=== PATIENT | female | born 1990 | race Caucasian/White ===

== ENCOUNTER 2020-07-30 12:06 | Emergency (ER) | payer BC, SELFPAY ==
[2020-07-30] MEDS ORDERED: KETOROLAC 30 MG/ML INJ ONE (13:07)
--- NOTE | 2020-07-30 13:33 | RAD REPORT ---
EXAM DESCRIPTION: CT - Spine Lumbar Wo Con - 07/30/2020 1:13 pm CLINICAL HISTORY: Radiculopathy. PAIN COMPARISON: No comparisons TECHNIQUE: Axial noncontrast CT imaging of the lumbar spine was performed with coronal and sagittal re-formatted images. All CT scans are performed using dose optimization technique as appropriate and may include automated exposure control or mA/KV adjustment according to patient size. FINDINGS: No acute lumbar spine fracture seen. No aggressive marrow pattern or malalignment. Paraspinal tissues are normal in thickness. No paraspinal abscess or hematoma seen. Intervertebral disc disease assessment is inherently limited by CT. Within these limitations, no high -grade canal stenosis suspected. IMPRESSION: No acute lumbar spine abnormality discerned. Consider MRI follow-up for assessment of disc disease if clinically desired.
--- NOTE | 2020-07-30 13:58 | EDPHYS ---
Physician Documentation [facility] Name: Nayeli Decker Age: 30 yrs Sex: Female : 1990 Arrival Date: 07/30/2020 Time: 12:11 Bed 26 Private MD: ED Physician Stefan Knott HPI: 07/30 13:56 This 30 yrs old Female presents to ER via Wheelchair with complaints of Back kb Pain. 13:56 The patient presents with pain that is acute. The symptoms are located in the low back. kb Onset: The symptoms/episode began/occurred today. The pain does not radiate. Associated signs and symptoms: The patient has no apparent associated signs or symptoms. The problem was sustained when lifting patient. Modifying factors: The patient symptoms are alleviated by nothing, the patient symptoms are aggravated by any movement. Severity of symptoms: At their worst the symptoms were moderate, in the emergency department the symptoms are unchanged. The patient has not experienced similar symptoms in the past. The patient has not recently seen a physician. 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 - Social history:: Smoking status: Patient reports the use of cigarette tobacco products, smokes one-half pack cigarettes per day. ROS: 13:53 Constitutional: Negative for fever, chills, and weight loss. kb 13:53 Back: Positive for pain at rest, pain with movement, of the lumbar area. 13:53 All other systems are negative. Exam: 13:55 Constitutional: This is a well developed, well nourished patient who is awake, alert, kb and in no acute distress. ENT: Moist Mucous membranes Cardiovascular: Regular rate and rhythm with a normal S1 and S2. No gallops, murmurs, or rubs. No pulse deficits. Respiratory: Respirations even and unlabored. No increased work of breathing, no retractions or nasal flaring. Abdomen/GI: Soft, non-tender. No distention Skin: Warm, dry with normal turgor. Normal color. MS/ Extremity: Pulses equal, no cyanosis. Neurovascular intact. Full, normal range of motion. Neuro: Awake and alert, GCS 15, oriented to person, place, time, and situation. Moves all extremities. Normal gait. Psych: Awake, alert, with orientation to person, place and time. Behavior, mood, and affect are within normal limits. 13:55 Back: pain, that is moderate, of the lumbar area, ROM is normal, normal spinal alignment noted. Vital Signs: 12:38 BP 116 / 82; Pulse 89; Resp 18; Temp 98.3(O); Pulse Ox 98% on R/A; Weight 74.84 kg (R); aj1 Height 5 ft. 4 in. (162.56 cm) (R); Pain 8/10; 13:27 BP 107 / 74; Pulse 63; Resp 18; Pulse Ox 100% on R/A; aj1 12:38 Body Mass Index 28.32 (74.84 kg, 162.56 cm) aj1 MDM: 12:40 Patient medically screened. kb 13:55 Data reviewed: vital signs, nurses notes. Data interpreted: Pulse oximetry: on room air kb is 100 %. Interpretation: normal. Counseling: I had a detailed discussion with the patient and/or guardian regarding: the historical points, exam findings, and any diagnostic results supporting the discharge/admit diagnosis, radiology results, the need for outpatient follow up, a family practitioner, to return to the emergency department if symptoms worsen or persist or if there are any questions or concerns that arise at home. 07/30 12:43 Order name: CT Lumbar Spine Wo Con; Complete Time: 13:35 kb Administered Medications: 12:55 Drug: TORadol (ketorolac) 30 mg Route: IM; Site: right deltoid; aj1 14:22 Follow up: Response: No adverse reaction aj1 14:05 Drug: [place] (HYDROcodone-acetaminophen) (7.5 mg-325 mg) 1 tabs Route: PO; aj1 14:22 Follow up: Response: No adverse reaction aj1 Disposition: 07/30/20 13:57 Discharged to Home. Impression: Low back pain. - Condition is Stable. - Discharge Instructions: Back Injury Prevention, Cxin-vi-[id number], Back Pain, Adult, Luai-ak-Stwo, Back Exercises, Ptcn-[id number]. - Prescriptions for Cyclobenzaprine 10 mg Oral Tablet - take 1 tablet by ORAL route every 8 hours As needed; 21 tablet. Diclofenac Sodium 75 mg Oral Tablet, Delayed Release (E.C.) - take 1 tablet by ORAL route 2 times per day As needed; 30 tablet. - Work release form, Medication Reconciliation Form, Thank You Letter, Antibiotic Education, Prescription Opioid Use form. - Follow up: Emergency Department; When: As needed; Reason: Worsening of condition. Follow up: Private Physician; When: 2 - 3 days; Reason: Recheck today's complaints, Continuance of care, Re-evaluation by your physician. Addendum: 08/02/2020 11:03 Co-signature as Attending Physician, Stefan Knott MD I agree with the assessment and k dr plan of care. Signatures: Dispatcher [employer] EDClaudine Goode, AURICULAR DETOXIFICATION SPECIALIST-C AURICULAR DETOXIFICATION SPECIALIST-Ckb Muriel Watt RN RN aj1 Stefan Knott MD MD kdr Corrections: (The following items were deleted from the chart) 07/30 14:23 13:57 07/30/2020 13:57 Discharged to Home. Impression: Low back pain. Condition is aj1 Stable. Forms are Medication Reconciliation Form, Thank You Letter, Antibiotic Education, Prescription Opioid Use. Follow up: Emergency Department; When: As needed; Reason: Worsening of condition. Follow up: Private Physician; When: 2 - 3 days; Reason: Recheck today's complaints, Continuance of care, Re-evaluation by your physician. kb
--- NOTE | 2020-07-30 13:58 | ER ---
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 Coronavirus screen: Client denies travel out of the [place] in the last 14 days. At this time, the client does not indicate any symptoms associated with coronavirus-19. Ebola Screen: Patient denies travel to an Ebola-affected area in the 21 days before illness onset. Initial Sepsis Screen: Does the patient meet any 2 criteria? No. Patient's initial sepsis screen is negative. Does the patient have a suspected source of infection? No. Patient's initial sepsis screen is negative. Risk Assessment: Do you want to hurt yourself or someone else? Patient reports no desire to harm self or others. Onset of symptoms was July 30, 2020. 12:38 Method Of Arrival: Wheelchair aj1 12:38 Acuity: TANGELA 4 aj1 Triage Assessment: 12:40 General: Appears in no apparent distress. uncomfortable, Behavior is calm, cooperative, aj1 appropriate for age. Pain: Denies pain. Complains of pain in low back area Pain does not radiate. Pain currently is 8 out of 10 on a pain scale. Musculoskeletal: Range of motion: intact in all extremities. 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 - Social history:: Smoking status: Patient reports the use of cigarette tobacco products, smokes one-half pack cigarettes per day. Screenin:40 Abuse screen: Denies threats or abuse. Denies injuries from another. Nutritional aj1 screening: No deficits noted. Tuberculosis screening: No symptoms or risk factors identified. 14:23 Fall Risk None identified. aj1 Assessment: 12:40 General: Appears in no apparent distress. uncomfortable, Behavior is calm, cooperative, aj1 appropriate for age. Pain: Complains of pain in low back area Pain does not radiate. Pain currently is 8 out of 10 on a pain scale. Quality of pain is described as aching. Neuro: Level of Consciousness is awake, alert, obeys commands, Oriented to person, place, time, situation. Cardiovascular: Patient's skin is warm and dry. Respiratory: Airway is patent Respiratory effort is even, unlabored, Respiratory pattern is regular, symmetrical. GI: No signs and/or symptoms were reported involving the gastrointestinal system. : No signs and/or symptoms were reported regarding the genitourinary system. EENT: No signs and/or symptoms were reported regarding the EENT system. Derm: No signs and/or symptoms reported regarding the dermatologic system. Skin is. Musculoskeletal: Circulation, motion, and sensation intact. Range of motion: intact in all extremities. 13:27 Reassessment: Patient appears in no apparent distress at this time. No changes from aj1 previously documented assessment. Patient and/or family updated on plan of care and expected duration. Pain level reassessed. Patient is alert, oriented x 3, equal unlabored respirations, skin warm/dry/pink. 14:23 Reassessment: Patient appears in no apparent distress at this time. Patient and/or aj1 family updated on plan of care and expected duration. Pain level reassessed. Patient is alert, oriented x 3, equal unlabored respirations, skin warm/dry/pink. Patient states feeling better. Vital Signs: 12:38 BP 116 / 82; Pulse 89; Resp 18; Temp 98.3(O); Pulse Ox 98% on R/A; Weight 74.84 kg (R); aj1 Height 5 ft. 4 in. (162.56 cm) (R); Pain 8/10; 13:27 BP 107 / 74; Pulse 63; Resp 18; Pulse Ox 100% on R/A; aj1 12:38 Body Mass Index 28.32 (74.84 kg, 162.56 cm) aj1 ED Course: 12:11 Patient arrived in ED. as 12:38 Muriel Watt RN is Primary Nurse. aj1 12:39 Triage completed. aj1 12:40 Claudine Lepe [facility]-C [facility]. kb 12:40 Stefan Knott MD is Attending Physician. kb 12:40 Arm band placed on Patient placed in an exam room. aj1 12:40 Patient has correct armband on for positive identification. Call light in reach. Side aj1 rails up X 1. 12:40 No provider procedures requiring assistance completed. aj1 13:13 CT Lumbar Spine Wo Con In Process Unspecified. EDMS 14:23 IV discontinued, intact, bleeding controlled, No redness/swelling at site. Pressure aj1 dressing applied. Administered Medications: 12:55 Drug: TORadol (ketorolac) 30 mg Route: IM; Site: right deltoid; aj1 14:22 Follow up: Response: No adverse reaction aj1 14:05 Drug: [place] (HYDROcodone-acetaminophen) (7.5 mg-325 mg) 1 tabs Route: PO; aj1 14:22 Follow up: Response: No adverse reaction aj1 Outcome: 13:57 Discharge ordered by . kb 14:23 Discharged to home ambulatory, with family. aj1 14:23 Condition: good 14:23 Discharge instructions given to patient, Instructed on discharge instructions, follow up and referral plans. medication usage, Demonstrated understanding of instructions, follow-up care, medications, Prescriptions given X 2. 14:23 Patient left the ED. aj1 Signatures: Dispatcher [employer] EDClaudine Goode FNP-C FNP-Muriel Smith RN RN aj1 Kemi Aguero as
[2020-07-30] MEDS ORDERED: HYDROCODONE/APAP 7.5/325 MG TAB ONE (14:28)
[2020-07-30 14:29] VITALS: TEMP 98.3
[2020-07-30 14:30] VITALS: BP 107/74; O2SAT 100
== END 2020-07-30 14:23 | disposition home or self-care (01) ==
LOC: ER 12:06
DX: M54.5 Low back pain (principal); F17.210 Nicotine dependence, cigarettes, uncomplicated; M17.0 Bilateral primary osteoarthritis of knee
CPT/HCPCS: 72131; 96372; 99283

== ENCOUNTER 2020-10-28 15:10 | Emergency (ER) | payer BC ==
[2020-10-28 16:58] LABS: SARS-COV-2 RT PCR NEGATIVE (NEGATIVE)
--- NOTE | 2020-10-28 17:02 | EDPHYS ---
Physician Documentation [facility] Name: Nayeli Decker Age: 30 yrs Sex: Female : 1990 Arrival Date: 10/28/2020 Time: 15:12 Bed Waiting Private MD: ED Physician Stefan Knott HPI: 10/28 18:19 This 30 yrs old Female presents to ER via Wheelchair with complaints of Pain kb All Over, Sore Throat, Headache. 18:19 The patient or guardian reports. kb 18:20 The patient presents with sore throat. The patient describes throat pain as constant. kb Onset: The symptoms/episode began/occurred this morning. Severity of symptoms: At their worst the symptoms were moderate, in the emergency department the symptoms are unchanged. Modifying factors: The symptoms are alleviated by nothing, the symptoms are aggravated by swallowing. Associated signs and symptoms: Pertinent positives: headache, bodyaches. The patient has not experienced similar symptoms in the past. The patient has not recently seen a physician. Pt reports she woke up with bodyaches, sore throat and headache. 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 - Social history:: Smoking status: . ROS: 18:18 Respiratory: Negative for shortness of breath, cough, wheezing, and pleuritic chest kb pain. 18:18 Constitutional: Positive for body aches, fatigue, malaise. 18:18 ENT: Positive for sore throat. 18:18 Neuro: Positive for headache. 18:18 All other systems are negative. Exam: 18:18 Constitutional: This is a well developed, well nourished patient who is awake, alert, kb and in no acute distress. Head/Face: Normocephalic, atraumatic. ENT: Moist Mucous membranes Cardiovascular: Regular rate and rhythm with a normal S1 and S2. No gallops, murmurs, or rubs. No pulse deficits. Respiratory: Respirations even and unlabored. No increased work of breathing, no retractions or nasal flaring. Skin: Warm, dry with normal turgor. Normal color. MS/ Extremity: Pulses equal, no cyanosis. Neurovascular intact. Full, normal range of motion. Neuro: Awake and alert, GCS 15, oriented to person, place, time, and situation. Moves all extremities. Normal gait. Psych: Awake, alert, with orientation to person, place and time. Behavior, mood, and affect are within normal limits. Vital Signs: 15:33 Temp 99.1(TE); tw2 15:42 BP 124 / 76; Pulse 112; Resp 19; Temp 99.1(TE); Pulse Ox 99% on R/A; tw2 MDM: 15:35 Patient medically screened. kb 15:36 Data reviewed: vital signs, nurses notes. Data interpreted: Pulse oximetry: on room air kb is 100 %. Interpretation: normal. 18:18 Counseling: I had a detailed discussion with the patient and/or guardian regarding: the kb historical points, exam findings, and any diagnostic results supporting the discharge/admit diagnosis, lab results, the need for outpatient follow up, a family practitioner, to return to the emergency department if symptoms worsen or persist or if there are any questions or concerns that arise at home. 10/28 15:37 Order name: COVID-19 : Document "Date of Symptom Onset" if Symptomatic. kb 10/28 15:37 Order name: Flu kb 10/28 15:37 Order name: Strep; Complete Time: 16:29 kb 10/28 16:26 Order name: Throat Culture EDMS 10/28 16:58 Order name: COVID-19/FLU A+B; Complete Time: 17:00 EDMS Administered Medications: No medications were administered Disposition: 10/29 04:43 Co-signature as Attending Physician, Stefan Knott MD I agree with the assessment and kdr plan of care. Disposition Summary: 10/28/20 17:01 Discharge Ordered Location: Home kb Condition: Stable kb Diagnosis - Acute pharyngitis, unspecified kb Followup: kb - With: Emergency Department - When: As needed - Reason: Worsening of condition Followup: kb - With: Private Physician - When: 2 - 3 days - Reason: Recheck today's complaints, Continuance of care, Re-evaluation by your physician Discharge Instructions: - Pharyngitis, [id number] kb - Discharge Summary Sheet tw2 Forms: - Medication Reconciliation Form kb - Thank You Letter kb - Antibiotic Education kb - Prescription Opioid Use kb - Work release form tw2 Signatures: Dispatcher [employer] EDClaudine Goode, REMOTE CONTROL MIRROR INSTALLER-C STEFAN-Stefan Bowers MD MD kdr Wise, Tara, RN RN tw2 Corrections: (The following items were deleted from the chart) 10/28 16:10 15:37 CORONAVIRUS ordered. ED[facility] EDMS 16:41 15:37 Influenza Screen (A ordered. ED[facility] EDMS
--- NOTE | 2020-10-28 17:02 | ER ---
Nurse's Notes [facility] Name: Nayeli Decker Age: 30 yrs Sex: Female : 1990 Arrival Date: 10/28/2020 Time: 15:12 Bed Waiting Private MD: Diagnosis: Acute pharyngitis, unspecified Presentation: 10/28 15:33 Chief complaint: Patient states: i woke up this morning with a swollen throat. it hurts tw2 to swallow. got worse throughout the day. between 6 and noon. my whole body started aching. terrible headache. 15:33 Note provider STEFAN Odell in triage room. tw2 15:38 Coronavirus screen: Client presents with at least one sign or symptom that may indicate tw2 coronavirus-19. Standard/surgical mask placed on the client. Provider contacted for isolation considerations. Ebola Screen: Patient denies travel to an Ebola-affected area in the 21 days before illness onset. Initial Sepsis Screen: Does the patient meet any 2 criteria? No. Patient's initial sepsis screen is negative. Does the patient have a suspected source of infection? No. Patient's initial sepsis screen is negative. Risk Assessment: Do you want to hurt yourself or someone else? Patient reports no desire to harm self or others. Onset of symptoms was October 28, 2020. 15:38 Method Of Arrival: Wheelchair tw2 15:38 Acuity: TANGELA 4 tw2 Triage Assessment: 15:37 General: Appears in no apparent distress. uncomfortable, Behavior is cooperative, tw2 appropriate for age. Pain: Complains of pain in uvula, left aspect of posterior pharynx and right aspect of posterior pharynx. 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 - Social history:: Smoking status: . Screenin:38 Abuse screen: Denies threats or abuse. Nutritional screening: No deficits noted. tw2 Tuberculosis screening: No symptoms or risk factors identified. Fall Risk None identified. Assessment: 15:44 Respiratory: Airway is patent Respiratory effort is even, unlabored, EENT: Throat is tw2 reddened. 17:17 Reassessment: Patient appears in no apparent distress at this time. No changes from tw2 previously documented assessment. Patient and/or family updated on plan of care and expected duration. Pain level reassessed. Patient is alert, oriented x 3, equal unlabored respirations, skin warm/dry/pink. Vital Signs: 15:33 Temp 99.1(TE); tw2 15:42 BP 124 / 76; Pulse 112; Resp 19; Temp 99.1(TE); Pulse Ox 99% on R/A; tw2 ED Course: 15:12 Patient arrived in ED. as 15:32 Arm band placed on. tw2 15:35 Claudine Lepe FNP-C [facility]. kb 15:35 Stefan Knott MD is Attending Physician. kb 15:38 Triage completed. tw2 15:43 Adult w/ patient. tw2 17:17 No provider procedures requiring assistance completed. Patient did not have IV access tw2 during this emergency room visit. Administered Medications: No medications were administered Outcome: 17:01 Discharge ordered by . kb 17:17 Discharged to home ambulatory, with family. tw2 17:17 Condition: stable 17:17 Discharge instructions given to patient, family, Instructed on discharge instructions, follow up and referral plans. 17:17 Patient left the ED. tw2 Signatures: Claudine Lepe FNP-C FNP-Kemi Busch Tara, RN RN tw2
[2020-10-28 17:38] VITALS: TEMP 99.1
[2020-10-28 17:40] VITALS: BP 124/76; O2SAT 99
== END 2020-10-28 17:17 | disposition home or self-care (01) ==
LOC: ER 15:10
DX: J02.9 Acute pharyngitis, unspecified (principal); F31.9 Bipolar disorder, unspecified; Z20.822 Contact with and (suspected) exposure to COVID-19
CPT/HCPCS: 87070; 87081; 0240U; 99281

== ENCOUNTER 2021-03-08 22:31 | Emergency (ER) | payer BC, SELFPAY ==
[2021-03-08] MEDS ORDERED: NA CHLORIDE 0.9% 1,000 ML ONE (23:08)
[2021-03-08 23:40] LABS: Hematocrit 38.2 % (36.0-45.0); Lymphocytes % 14.9 % (15.3-44.8); MPV 8.8 fL (7.6-11.3); RBC Red Blood Cell Count 4.36 M/uL (3.86-4.86)
[2021-03-08 23:45] LABS: Urine Blood 1+ (Negative); Urine Glucose Negative (Negative); Urine Protein 2+ (Negative); Urine Specific Gravity 1.025 (1.005-1.030); Urine pH 6.5 (5.0-7.0)
[2021-03-08 23:53] LABS: ALT/SGPT 21 U/L (12-78); AST/SGOT 11 U/L (15-37); Albumin 3.3 g/dL (3.4-5.0); Alkaline Phosphatase 86 U/L (45-117); BUN Blood Urea Nitrogen 6 mg/dL (7-18); Bicarbonate 25 mmol/L (21-32); Bilirubin Direct < 0.1 mg/dL (0-0.2); Bilirubin Total 0.3 mg/dL (0.2-1.0); Creatine Phosphokinase 64 U/L (26-192); Glucose Level 119 mg/dL (74-106); Lipase 58 U/L (73-393); Magnesium 2.2 mg/dL (1.8-2.4); Potassium 3.3 mmol/L (3.5-5.1); Protein, Total 7.3 g/dL (6.4-8.2); Sodium Level 140 mmol/L (136-145)
[2021-03-09 00:01] LABS: CKMB Creatine Kinase MB < 1.0 ng/mL (1.0-3.6)
[2021-03-09] MEDS ORDERED: LIDOCAINE 1% W/EPI 1:100,000 MDV 20 ML VIAL ONE (00:45)
[2021-03-09] MEDS ORDERED: TETANUS & DIPHTHERIA TOX,ADULT 0.5 ML VIAL ONE (00:45)
[2021-03-09 00:58] LABS: Urine Specific Gravity/Preg 1.025 (1.005-1.030)
[2021-03-09] MEDS ORDERED: NA CHLORIDE 0.9% 50 ML ONE (01:25)
[2021-03-09] MEDS ORDERED: CEFTRIAXONE 1000 MG/VIAL ONE (01:25)
[2021-03-09 02:05] LABS: Urine Bacteria 20-50 /HPF (<20); Urine RBC <5 /HPF (NONE SEEN); Urine Urothelial Cells <5 /HPF (NONE SEEN)
[2021-03-09 03:11] LABS: Barbiturates NEGATIVE (NEGATIVE); Benzodiazepines NEGATIVE (NEGATIVE); Cocaine NEGATIVE (NEGATIVE); METHAMPHETAM POSITIVE (NEGATIVE); Methadone NEGATIVE (NEGATIVE); Opiates NEGATIVE (NEGATIVE); Phencyclidine NEGATIVE (NEGATIVE); THC Cannibis POSITIVE (NEGATIVE)
--- NOTE | 2021-03-09 04:10 | ER ---
Nurse's Notes [facility] Name: Nayeli Decker Age: 30 yrs Sex: Female : 1990 Arrival Date: 03/08/2021 Time: 22:43 Bed 4 Private MD: Diagnosis: UTI/ Urinary tract infection, site not specified;Syncope Presentation: 03/08 22:44 Chief complaint: EMS states: pt was talking on phone and started feeling dizzy, had a mk syncopal episode lasting unknown amount of time, hit head on corner of coffee table, lac to L forehead. complaining of head and L knee pain. hx of hypoglycemia, BG for ems was 127. pt a\T\ox3 now. Coronavirus screen: Vaccine status: Patient reports receiving the 2nd dose of the covid vaccine. Ebola Screen: No symptoms or risks identified at this time. Initial Sepsis Screen: Does the patient meet any 2 criteria? HR > 90 bpm. No. Patient's initial sepsis screen is negative. Does the patient have a suspected source of infection? No. Patient's initial sepsis screen is negative. Risk Assessment: Do you want to hurt yourself or someone else? Patient reports no desire to harm self or others. Onset of symptoms was March 08, 2021. 22:44 Method Of Arrival: EMS: [facility] 22:44 Acuity: TANGELA 3 Triage Assessment: 03/09 01:19 General: Appears in no apparent distress. Behavior is drowsy. Pain: Complains of pain sf1 in forehead. Neuro: Level of Consciousness is obeys commands, lethargic. Injury Description: Laceration sustained to forehead is clean, a small amount of bleeding noted at this time. DROSSER: 00:42 LMP 03/02/2021 [facility] Historical: - Allergies: 03/08 22:46 No Known Allergies; - Home Meds: 22:46 Lamictal 100 mg Oral tab 1 tab 2 times per day [Active]; prazosin 1 mg Oral cap 1 cap 3 mk times per day [Active]; trazodone 100 mg oral tab [Active]; Abilify 10 mg oral tab [Active]; - PMHx: 22:46 Anxiety; Bipolar disorder; osteoarthritis; osteoathritis in knees; PTSD; mk - PSHx: 22:46 Operative procedure on knee; - Immunization history:: Client reports receiving the 2nd dose of the Covid vaccine. - Social history:: Smoking status: unknown. Screenin:47 Abuse screen: Denies threats or abuse. Denies injuries from another. Nutritional screening: No deficits noted. Tuberculosis screening: No symptoms or risk factors identified. Fall Risk Fall in past 12 months (25 points). No secondary diagnosis (0 pts). IV access (20 points). Ambulatory Aid- None/Bed Rest/Nurse Assist (0 pts). Gait- Normal/Bed Rest/Wheelchair (0 pts) Mental Status- Oriented to own ability (0 pts). Total Warren Fall Scale indicates High Risk Score (45 or more points). Fall prevention measures have been instituted. Side Rails Up X 2 Frequent Obs/Assessments Occuring As available patient and family educated on Fall Prevention Program and Strategies. Assessment: 23:45 Reassessment: No changes from previously documented assessment. see triage assessment. [facility] 03/09 01:00 Reassessment: No changes from previously documented assessment. [facility] 02:00 Reassessment: No changes from previously documented assessment. [facility] 04:15 Reassessment: pt ambulated to bathroom and back without assistance. [facility] Vital Signs: 03/08 22:44 BP 105 / 82; Pulse 128; Resp 22; Pulse Ox 100% on R/A; Weight 62.14 kg; Height 5 ft. 4 mk in. (162.56 cm); 03/09 00:41 BP 112 / 73; Pulse 107; Resp 16; Pulse Ox 99% on R/A; 5 01:19 BP 108 / 66; Pulse 97; Resp 16; sf1 04:13 BP 113 / 88; Pulse 84; Resp 16; Pulse Ox 100% ; [facility] 03/08 22:44 Body Mass Index 23.52 (62.14 kg, 162.56 cm) ED Course: 03/08 22:43 Patient arrived in ED. mk 22:44 Claudine Lepe FNP-C is PHCP. kb 22:44 Prem Cordova MD is Attending Physician. kb 22:46 Triage completed. mk 22:47 Arm band placed on right wrist. mk 22:47 Patient has correct armband on for positive identification. Bed in low position. Call light in reach. Side rails up X2. monitor technician on. Pulse ox on. NIBP on. 22:57 CT Head Brain wo Cont In Process Unspecified. EDMS 23:00 Katina Mendoza, RN is Primary Nurse. mk 23:15 CBC with Diff Sent. mk 23:15 Basic Metabolic Panel Sent. mk 23:15 CBC with Automated Diff Sent. mk 23:15 Basic Metabolic Panel Sent. mk 23:15 Ptt, Activated Sent. mk 23:15 Protime (+inr) Sent. mk 23:15 Magnesium Sent. mk 23:15 Lipase Sent. mk 23:15 Hepatic Function Sent. mk 23:15 Ckmb Sent. mk 23:15 CPK Sent. 03/09 01:03 Alcohol Serum/Plasma Sent. 1 01:03 ETOH Level Sent. sf1 04:21 Assist provider with laceration repair on forehead that was between 2.6 to 7.5 cm using sm5 sutures. Set up tray. Performed by Claudine EDWARDS Dressed with band aid, Patient tolerated well. IV discontinued, intact, bleeding controlled, No redness/swelling at site. Pressure dressing applied. 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 Exp: [facility] 07/02/2021. Lot #: [id number]. } Route: IM; Site: left deltoid; 01:30 Drug: Rocephin (cefTRIAXone) 1 grams Route: IV; Rate: calculated rate; Site: right sm5 antecubital; Outcome: 04:10 Discharge ordered by . rn 04:22 Discharged to home ambulatory. [facility] 04:22 Condition: stable 04:22 Discharge instructions given to patient, Instructed on discharge instructions, follow up and referral plans. medication usage, Demonstrated understanding of instructions, follow-up care, medications, Prescriptions given X 1. 04:30 Patient left the ED. 5 Signatures: Dispatcher [employer] EDKS Claudine Lepe FNP-C FNP-Prem Nwesome MD MD rn Mazur, Sarah, RN RN 5 Katina Mendoza, RN RN Rupal Joy RN RN sf1 Corrections: (The following items were deleted from the chart) 04:21 03/08 23:45 Reassessment: No changes from previously documented assessment. [email or web address]
--- NOTE | 2021-03-09 04:11 | EDPHYS ---
Physician Documentation [facility] Name: Nayeli Decker Age: 30 yrs Sex: Female : 1990 Arrival Date: 03/08/2021 Time: 22:43 Bed 4 Private MD: ED Physician Prem Cordova HPI: 03/09 00:38 This 30 yrs old Female presents to ER via EMS with complaints of syncope. kb 00:38 The patient has experienced syncope, collapsed. Onset: The symptoms/episode kb began/occurred just prior to arrival. Duration: This was a single episode. Context: the episode(s) was witnessed, by family, mother, occurred at home, occurred while the patient was standing, Just prior to the episode the patient experienced lightheadedness. Associated injury: Head/face: right side of forehead, laceration, 3 cm(s). Associated signs and symptoms: Pertinent positives: headache. Current symptoms: headache, that is moderate. The patient has not experienced similar symptoms in the past. The patient has not recently seen a physician. 00:39 Pt had a syncopal episode at home. States she got lightheaded then passed out. Mother marylu was there and called 911. Pt reports she drank 3 beers tonight. 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 - Social history:: Smoking status: unknown. ROS: 03/09 00:36 Constitutional: Negative for fever, chills, and weight loss. kb Skin: Positive for laceration(s), of the right side of forehead. Neuro: Positive for syncope, Negative for altered mental status, dizziness, gait disturbance, headache, hearing loss, loss of consciousness, numbness, seizure activity, speech changes, near syncope, tinnitus, tremor, visual changes, weakness. All other systems are negative. Exam: 00:36 Constitutional: This is a well developed, well nourished patient who is awake, alert, kb and in no acute distress. Eyes: Pupils equal round and reactive to light, extra-ocular motions intact. Lids and lashes normal. Conjunctiva and sclera are non-icteric and not injected. Cornea within normal limits. Periorbital areas with no swelling, redness, or edema. ENT: Moist Mucous membranes Cardiovascular: Regular rate and rhythm with a normal S1 and S2. No gallops, murmurs, or rubs. No pulse deficits. Respiratory: Respirations even and unlabored. No increased work of breathing. Talking in full sentences Abdomen/GI: Soft, non-tender. No distention MS/ Extremity: Pulses equal, no cyanosis. Neurovascular intact. Full, normal range of motion. Neuro: Awake and alert, GCS 15, oriented to person, place, time, and situation. Moves all extremities. Normal gait. Psych: Awake, alert, with orientation to person, place and time. Behavior, mood, and affect are within normal limits. 00:36 Skin: injury, laceration(s), the wound is approximately 3 cm(s), of the right side of forehead, that can be described as clean, no foreign body, linear, without bleeding. 00:44 ECG was reviewed by the Attending Physician. kb Vital Signs: 03/08 22:44 BP 105 / 82; Pulse 128; Resp 22; Pulse Ox 100% on R/A; Weight 62.14 kg; Height 5 ft. 4 mk in. (162.56 cm); 03/09 00:41 BP 112 / 73; Pulse 107; Resp 16; Pulse Ox 99% on R/A; sm5 01:19 BP 108 / 66; Pulse 97; Resp 16; sf1 04:13 BP 113 / 88; Pulse 84; Resp 16; Pulse Ox 100% ; sm5 03/08 22:44 Body Mass Index 23.52 (62.14 kg, 162.56 cm) mk Laceration: 01:06 Wound Repair of 3cm ( 1.2in ) subcutaneous laceration to right side of forehead. Linear kb shaped.. Distal neuro/vascular/tendon intact. Anesthesia: Wound infiltrated with 3 mls of 1% lidocaine w/ Epi. Wound prep: Extensive cleansing with hibiclenz by nurse, Wound irrigation with saline by nurse. Skin closed with 5 5-0 fast absorbing gut using simple sutures and sterile technique. Patient tolerated well. MDM: 03/08 22:44 Patient medically screened. kb 03/09 00:36 Data reviewed: vital signs, nurses notes. Data interpreted: Pulse oximetry: on room air kb is 100 %. Interpretation: normal. 02:02 ED course: Pt ambulated with assist, but still very drowsy. Will continue to monitor. kb 02:44 Transition of care: After a detail discussion of the patient's case, care is kb transferred to Prem Cordova MD. 03/08 22:45 Order name: Basic Metabolic Panel kb 03/08 22:45 Order name: CBC with Diff kb 03/08 22:45 Order name: CPK; Complete Time: 00:09 kb 03/08 22:45 Order name: Ckmb; Complete Time: 00:09 kb 03/08 22:45 Order name: Hepatic Function; Complete Time: 00:09 kb 03/08 22:45 Order name: Lipase; Complete Time: 00:09 kb 03/08 22:45 Order name: Magnesium; Complete Time: 00:09 kb 03/08 22:45 Order name: Basic Metabolic Panel; Complete Time: 00:09 EDMS 03/08 22:45 Order name: CBC with Automated Diff; Complete Time: 23:52 EDMS 03/08 23:45 Order name: Urine Dipstick-Ancillary; Complete Time: 23:52 EDMS 03/09 00:35 Order name: Urine --Ancillary (enter results); Complete Time: 01:05 lp1 03/09 00:36 Order name: Urine Microscopic Only; Complete Time: 02:06 kb 03/08 22:45 Order name: CT Head Brain wo Cont kb 03/08 22:45 Order name: EKG; Complete Time: 22:46 kb 03/08 22:45 Order name: Cardiac monitoring; Complete Time: 22:48 kb 03/08 22:45 Order name: EKG - Nurse/Tech; Complete Time: 23:15 kb 03/08 22:45 Order name: IV Saline Lock; Complete Time: 22:47 kb 03/08 22:45 Order name: Labs collected and sent; Complete Time: 23:15 kb 03/08 22:45 Order name: NPO; Complete Time: 22:47 kb 03/09 00:46 Order name: Glucose, Ancillary Testing; Complete Time: 00:47 EDMS 03/09 00:48 Order name: ETOH Level 03/09 00:49 Order name: Alcohol Serum/Plasma; Complete Time: 01:17 EDMS 03/09 02:09 Order name: Urine Culture EDPR 03/09 02:48 Order name: UDS; Complete Time: 03:15 bb 03/08 22:45 Order name: O2 Per Protocol; Complete Time: 22:47 kb 03/08 22:45 Order name: O2 Sat Monitoring; Complete Time: 22:47 kb 03/08 22:45 Order name: Urine Dipstick-Ancillary (obtain specimen); Complete Time: 23:52 kb 03/09 00:36 Order name: Vital Signs; Complete Time: 00:42 kb 03/09 00:37 Order name: Dressing - Wound; Complete Time: 01:03 kb 03/09 00:37 Order name: Gloves, Sterile; Complete Time: 01:03 kb 03/09 00:37 Order name: Setup Suture Tray; Complete Time: 01:03 kb EC:44 Rate is 101 beats/min. Rhythm is regular. QRS [place] is Normal. [place] interval is normal at kb 148 msec. QRS interval is normal at 78 msec. QT interval is normal at 348 msec. 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 Exp: sf1 07/02/2021. Lot #: [id number]. } Route: IM; Site: left deltoid; 01:30 Drug: Rocephin (cefTRIAXone) 1 grams Route: IV; Rate: calculated rate; Site: right sm5 antecubital; Disposition: 04:10 Co-signature as Attending Physician, Prem Cordova MD. rn Disposition Summary: 03/09/21 04:10 Discharge Ordered Location: Home rn Condition: Stable rn Diagnosis - UTI/ Urinary tract infection, site not specified rn - Syncope rn Followup: kb - With: Emergency Department - When: As needed - Reason: Worsening of condition Followup: kb - With: Private Physician - When: 2 - 3 days - Reason: Recheck today's complaints, Continuance of care, Re-evaluation by your physician Discharge Instructions: - Discharge Summary Sheet kb - Urinary Tract Infection, Adult, [id number] kb - Syncope, [id number] kb Forms: - Medication Reconciliation Form rn - Thank You Letter rn - Antibiotic rn case management - Prescription Opioid Use rn Prescriptions: - Macrobid 100 mg Oral Capsule - take 1 capsule by ORAL route every 12 hours for 10 days; 20 capsule; Refills: kb 0, Product Selection Permitted Signatures: Dispatcher [employer] EDClaudine Goode, LACE WINDER-C LACE WINDER-Prem Newsome MD MD rn Mazur, Sarah, RN RN sm5 Katina Mendoza, RN Rupal Cotter RN RN sf1
[2021-03-09 04:54] VITALS: BP 113/88; O2SAT 100
--- NOTE | 2021-03-09 11:25 | RAD REPORT ---
EXAM DESCRIPTION: CT - Head Brain Wo Cont - 03/09/2021 6:02 am CLINICAL HISTORY: 30 years Female PAIN COMPARISON: None TECHNIQUE: Contiguous axial images of the brain were obtained without the administration of intraven ous contrast.This exam was performed according to our departmental dose-optimization program which in cludes use of Automated Exposure Control, adjustment of the mA and/or kV according to patient size an d/or use of iterative reconstruction technique. DLP: 827 mGy*cm FINDINGS: Brain: No acute intracranial hemorrhage. No extra-axial collection. No mass effect or beau iation. Ventricles: Within normal limits in size. Globes and orbits: No acute abnormality. Bones: No acute osseous finding Paranasal sinuses: Paranasal sinuses are clear. Mastoid air cells: Well pneumatized. Soft tissues: Within normal limits IMPRESSION: No acute intracranial abnormality. 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 The interpreting r adiologist is fully responsible for the content of the report.
== END 2021-03-09 04:30 | disposition home or self-care (01) ==
LOC: ER 22:31
PROC: 0JQ10ZZ Repair Face Subcutaneous Tissue and Fascia, Open Approach (ICD-10-PCS; principal; 2021-03-09)
DX: S01.81XA Laceration without foreign body of other part of head, initial encounter (principal); N39.0 Urinary tract infection, site not specified; Z23 Encounter for immunization
CPT/HCPCS: 36415; 70450; 80048; 80076; 80307; 80320; 81003; 81015; 81025; 82550; 82553; 82947; 83690; 83735; 85025; 87086; 87088; 90471; 90714; 93005; 96374; 99285; J7030

== ENCOUNTER 2021-06-02 10:07 | Emergency (ER) | payer SELFPAY ==
--- OUTSIDE RECORDS SUMMARY | 2021-06-02 10:10 | XMS REPORT | Continuity of Care Document ---
:1990 Author Organization [facility] t Address [address] [place] [address] Care Team Providers Name Role Phone PCP, DOES NOT HAVE A Primary Care Physician Unavailable PAIGE Attending Clinician Unavailable RADHA GUPTA Attending Clinician Unavailable Radha Wallis Attending Clinician Payers Payer Name Policy Type Policy Number Effective Date Expiration Date [facility] [id number] 2013 [facility] MEDICAID 00:00:00 Problems Condition Condition Condition Status Onset Resolution Last Treating Co mments Source Name Details Category Date Date Treatment Clinician Date Need for Need for Disease Active Unive rs Tdap Tdap 06-15 ity [place] Obesity Obesity Disease Active Univers 06-15 ity of 00:00: [address] Tobacco Tobacco Disease Active Univers use use 05-26 ity of disorder disorder 00:00: [address] Scoliosis Scoliosis Disease Active Uni vers 06-01 ity of 00:00: [address] Depression Depression Disease Active Overview : Univers - [place] ity of 00:00: g of this [place] note Medical might be Branch different from the original. Taking prozac; working "great"; Denies any depressio n; No suicidal thoughts or ideation Allergies, Adverse Reactions, Alerts Allergy Allergy Status Severity Reaction(s) Onset Inactive Treating Comm ents Source Name Type Date Date Clinician NO KNOWN Drug Active Univers ALLERGIE Class ity of S [facility] Social History Social Habit Start Date Stop Date Quantity Comments Source History of tobacco Cigarette Smoker University of use [facility] Exposure to Not sure University of SARS-CoV-2 (event) [facility] Alcohol intake 2015-06-16 2015-06-16 Current University of 00:00:00 00:00:00 non-drinker of [facility] alcohol Branch (finding) Cigarettes smoked 2013-05-30 2013-05-30 Univers ity of current (pack per 00:00:00 00:00:00 ) - Reported Branch Cigarette 2013-05-30 2013-05-30 University of pack-years 00:00:00 00:00:00 [facility] Tobacco use and 2013-05-30 2013-05-30 Never used Universit y of exposure 00:00:00 00:00:00 [facility] Sex Ass[birth year] At [birth year] Universit y of 00:00:00 00:00:00 [facility] Smoking Status Start Date Stop Date Source Current every day smoker 2013-05-30 00:00:00 Uni versity of [facility] Medications Ordered Filled Start Stop Current Ordering Indication Dosage Frequency Signature Comments Components Source Medication Medication Date Date Medication? Clinician (SIG) Name Name GABAPENTIN Yes Take by Uni vers (NEURONTIN 4-27 mouth 2 ity of ORAL) 10:11: (two) [place] 52 times Medical daily. Branch SERTraline Yes 100mg Take 100 Un gatito (ZOLOFT) 4-27 mg by ity of 100 mg 10:10: mouth [place] tablet 46 daily. Medical Branch QUEtiapine Yes 25mg Take 25 mg U nivers (SEROQUEL) 4-27 by mouth ity o f 25 mg 10:10: daily. [facility] Branch ARIPiprazol Yes 5mg Take 5 mg U nivers e (ABILIFY) 4-27 by mouth ity of 5 mg tablet 10:10: daily. [address] Immunizations Ordered Filled Immunization Date Status Comments Sourc e Immunization Name Name Influenza Virus 2013-01-19 Completed Universit y of Vaccine - Whole 00:00:00 [facility] ical Branch HPV 2008-05-18 Completed University of 00:00:00 [facility] HPV 2008-02-25 Completed University of 00:00:00 [facility] Vital Signs Vital Name Observation Time Observation Value Comments Source Systolic blood 2021-05-31 18:16:00 126 mm[Hg] Univer sity of pressure [facility] Diastolic blood 2021-05-31 18:16:00 76 mm[Hg] Unive rsity of pressure [facility] Heart rate 2021-05-31 18:16:00 94 /min Universi ty of [facility] Body temperature 2021-05-31 18:16:[address] [facility] Respiratory rate 2021-05-31 18:16:00 16 /min [facility] Body height 2021-05-31 18:16:00 160 cm Universi ty of [facility] Body weight 2021-05-31 18:16:00 58.968 kg Universi ty [facility] BMI 2021-05-31 18:16:00 23.03 [facility]m2 [facility] O[facility] saturation in 2021-05-31 18:16:00 98 /min [facility] Arterial blood by [facility] Pulse oximetry Branch Procedures Procedure Date / Time Performed Performing Clinician [facility] e NOTICE OF PRIVACY 2021-05-31 18:05:44 Doctor Unassigned, No Univ [facility] PRACTICES Name Medical Branch CONSENT/REFUSAL FOR 2021-05-31 18:05:27 Doctor Unassigned, No Un [facility] DIAGNOSIS AND Name Medical Branch TREATMENT Encounters Start End Encounter Admission Attending Care Care Encounter Source Date/Time Date/Time Type Type Clinicians Facility Department ID 2021-03-17 Outpatient PAIGE [facility] [id number] [place] 15:17:46 [facility] 2021-05-31 2021-05-31 Emergency X Jimmie GUPTA [facility] ERT [id number] Univers 13:17:00 15:49:00 ity of [facility] 2021-05-31 2021-05-31 Emergency Diana K [facility] [id number] Univers 13:17:00 15:49:00 Radha SEGURA [id number] i [facility] [id number] [facility] [id number] Medi joey 084 Branch Results This patient has no known results.
[2021-06-02] MEDS ORDERED: KETOROLAC 30 MG/ML INJ ONE (10:51)
--- NOTE | 2021-06-02 11:01 | RAD REPORT ---
EXAM DESCRIPTION: RAD - Chest Pa And Lat (2 Views) - 06/02/2021 10:50 am CLINICAL HISTORY: CHEST PAIN COMPARISON: Two view chest July 2011 TECHNIQUE: Frontal and lateral views of the chest were obtained. FINDINGS: The lungs are clear. Heart size is normal and central vasculature is within normal limit s. No pleural effusion or pneumothorax seen. No acute bony finding noted. No aortic abnormality. No significant change from comparison study. IMPRESSION: No acute cardiopulmonary process.
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
[2021-06-02 14:19] VITALS: TEMP 99
[2021-06-02 14:20] VITALS: BP 122/88; O2SAT 100
== END 2021-06-02 11:36 | disposition home or self-care (01) ==
LOC: ER 10:07
DX: R07.82 Intercostal pain (principal); F31.9 Bipolar disorder, unspecified; F17.210 Nicotine dependence, cigarettes, uncomplicated
CPT/HCPCS: 71046; 96372; 99283

== ENCOUNTER 2021-10-16 21:01 | Emergency (ER) | payer SELFPAY ==
--- OUTSIDE RECORDS SUMMARY | 2021-10-16 21:03 | XMS REPORT | Continuity of Care Document ---
:1990 Author Organization [facility] t Address [address] [place] [address] Care Team Providers Name Role Phone PCP, PATIENT DOES NOT HAVE A Primary Care Physician Unavaila PATRICIA Wetzel Attending Clinician Unavailable Jimmie GUPTA Attending Clinician Unavailable Jimmie Wallis Attending Clinician Payers Payer Name Policy Type Policy Number Effective Date Expiration Date [facility] [id number] 2013 [facility] MEDICAID 00:00:00 Problems Condition Condition Condition Status Onset Resolution Last Treating Co mments Source Name Details Category Date Date Treatment Clinician Date Need for Need for Disease Active Unive rs Tdap Tdap 06-15 ity [place] [facility] [place] Obesity Obesity Disease Active Univers 06-15 ity of 00:00: Medical Branch Tobacco Tobacco Disease Active Univers use use 05-26 ity of disorder disorder 00:00: [place] [facility] Branch Scoliosis Scoliosis Disease Active Uni vers 06-01 ity of 00:00: [address] Depression Depression Disease Active Overview : Univers 06-01 Formattin ity of 00:00: g of this note Medical might be Branch different from the original. Taking prozac; working "great"; Denies any depressio n; No suicidal thoughts or ideation Allergies, Adverse Reactions, Alerts Allergy Allergy Status Severity Reaction(s) Onset Inactive Treating Comm ents Source Name Type Date Date Clinician NO KNOWN Drug Active Univers ALLERGIE Class ity of S [facility] Social History Social Habit Start Date Stop Date Quantity Comments Source History of tobacco Cigarette Smoker University of use [facility] Exposure to Not sure University of SARS-CoV-2 (event) [facility] Alcohol intake 2015-06-16 2015-06-16 Current University 00:00:00 00:00:00 non-drinker of [facility] alcohol Branch (finding) Cigarettes smoked 2013-05-30 2013-05-30 Univers ity of current (pack per 00:00:00 00:00:00 [facility] ) - Reported Branch Cigarette 2013-05-30 2013-05-30 University of pack-years 00:00:00 00:00:00 [facility] Tobacco use and 2013-05-30 2013-05-30 Never used Universit y of exposure 00:00:00 00:00:00 [facility] Sex Assigned At [birth year] Universit y of 00:00:00 00:00:00 [facility] Smoking Status Start Date Stop Date Source Current every day smoker 2013-05-30 00:00:00 Uni versity of [facility] Medications Ordered Filled Start Stop Current Ordering Indication Dosage Frequency Signature Comments Components Source Medication Medication Date Date Medication? Clinician (SIG) Name Name GABAPENTIN Yes Take by [facility] ers (NEURONTIN 4-27 mouth 2 ity of ORAL) 10:11: (two) [place] 52 times Medical daily. Branch SERTraline Yes 100mg Take 100 Un g[place]ito (ZOLOFT) 4-27 mg by ity of 100 mg 10:10: mouth [place] tablet 46 daily. Medical Branch QUEtiapine Yes 25mg Take 25 mg U nivers (SEROQUEL) 4-27 by mouth ity o f 25 mg 10:10: daily. [place] tablet 46 Medical Branch ARIPiprazol 0 Yes 5mg Take 5 mg U nivers e (ABILIFY) 4-27 by mouth ity of 5 mg tablet 10:10: daily. [address] Immunizations Ordered Filled Immunization Date Status Comments Sourc e Immunization Name Name Influenza Virus 2013-01-19 Completed Universit y of Vaccine - Whole 00:00:00 [facility] ical Branch HPV 2008-05-18 Completed University 00:00:00 [facility] HPV 2008-02-25 Completed University 00:00:00 [facility] Vital Signs Vital Name Observation Time Observation Value Comments Source Systolic blood 2021-05-31 18:16:00 126 mm[Hg] Univer sity of pressure [facility] Diastolic blood 2021-05-31 18:16:00 76 mm[Hg] Unive rsity of pressure [facility] Heart rate 2021-05-31 18:16:00 94 /min Universi [facility] Body temperature 2021-05-31 18:16:[address] [facility] Respiratory rate 2021-05-31 18:16:00 16 /min [facility] Body height 2021-05-31 18:16:00 160 cm Universi ty [facility] Body weight 2021-05-31 18:16:00 58.968 kg Universi [facility] BMI 2021-05-31 18:16:00 23.03 kg/m2 [facility] Oxygen saturation in 2021-05-31 18:16:00 98 /min [facility] Arterial blood by [facility] Pulse oximetry Branch Procedures Procedure Date / Time Performed Performing Clinician [facility] e NOTICE OF PRIVACY 2021-05-31 18:05:44 Doctor Unassigned, No Univ [facility] PRACTICES Name Medical Branch CONSENT/REFUSAL FOR 2021-05-31 18:05:27 [facility], [facility] AND Name Medical Branch TREATMENT Encounters Start End Encounter Admission Attending Care Care Encounter Source Date/Time Date/Time Type Type Clinicians Facility Department ID 2021-03-17 Outpatient PAIGE [facility] [id number] [place] 15:17:46 [facility] 2021-05-31 2021-05-31 Emergency X Jimmie GUPTA [facility] ERT [id number] Univers 13:17:00 15:49:00 ity of [facility] 2021-05-31 2021-05-31 Emergency Diana K [facility] [id number] Univers 13:17:00 15:49:00 Radha SEGURA [id number] i ty [facility] [id number] [facility] [id number] Medi joey 084 Branch Results This patient has no known results.
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
[2021-10-16] MEDS ORDERED: HYDROCODONE/APAP 7.5/325 MG TAB ONE (22:22)
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
[2021-10-17 01:27] VITALS: TEMP 98.3; O2SAT 100
[2021-10-17 01:31] VITALS: BP 126/88
== END 2021-10-16 22:59 | disposition home or self-care (01) ==
LOC: ER 21:01
DX: S00.83XA Contusion of other part of head, initial encounter (principal); S00.33XA Contusion of nose, initial encounter; F17.210 Nicotine dependence, cigarettes, uncomplicated; F31.9 Bipolar disorder, unspecified
CPT/HCPCS: 70450; 70486; 76377; 99284

== ENCOUNTER → 2023-02-27 | Emergency (ER) | payer SELFPAY ==
--- OUTSIDE RECORDS SUMMARY | 2023-02-27 09:58 | XMS REPORT | Continuity of Care Document ---
Author Name Unknown Address [address] [place] [address] [facility] Address [address] [place] [address] Care Team Providers Care Feed Management Advisor Name Role Phone PCP, PATIENT DOES NOT HAVE A Primary Care Physic gayla Unavailable PATRICIA GIBSON Attending Clinician Unavailable TXOJoaquínA_Physician Attending Clinician Unavailable Jimmie GUPTA Attending Clinician Unavailable Jimmie Wallis Attending Clinician [phone] TXO_A_Physician Admitting Clinician Unavailable Payers Payer Name Policy Type Policy Number Effective Date Expirati on Date Source [employer] - [facility] [id number] [facility] [employer] [id number] 2013 00:00:00 Problems Condition Name Condition Details Condition Category Status Onset Date Resolution Date Last Treatment Date Treating Clinician Comments Source Need for Tdap vaccinatio n Need for Tdap vaccinatio n Disease Active 06-15 00:00: 00 [facility] Obesity Obesity Disease Active 06-15 00:00: 00 [facility] Tobacco use disorder Tobacco use disorder Disease Active 05-26 00:00: 00 [facility] Scoliosis Scoliosis Disease Active 06-01 00:00: 00 [facility] Depression Depression Disease Active 06-01 00:00: 00 Overview: Formattin g of this note might be different from the original. Taking prozac; working "great"; Denies any depressio n; No suicidal thoughts or ideation [facility] Allergies, Adverse Reactions, Alerts Allergy Name Allergy Type Status Severity Reaction(s) Onset Date Inactive Date Treating Clinician Comments Source NO KNOWN ALLERGIE S Drug Class Active [facility] Social History Social Habit Start Date Stop Date Quantity Comments Source History of tobacco use Cigarette Smoker [facility] Exposure to SARS-CoV-2 (event) Not sure [facility] Alcohol intake 2015-06-16 00:00:00 2015-06-16 00:00:00 Current non-drinker of alcohol (finding) [facility] Cigarettes smoked current (pack per day) - Reported 2013-05-30 00:00:00 2013-05-30 00:00:00 [facility] Cigarette pack-years 2013-05-30 00:00:00 2013-05-30 00:00:00 [facility] Tobacco use and exposure 2013-05-30 00:00:00 2013-05-30 00:00:00 Never used [facility] Sex Assigned At 1990 00:00:00 1990 00:00:00 [facility] Smoking Status Start Date Stop Date Source Current every day smoker 2013-05-30 00:00:00 [facility] Medications Ordered Medication Name Filled Medication Name Start Date Stop Date Current Medication? Ordering Clinician Indication Dosage Frequency Signature (SIG) Comments Components Source GABAPENTIN (NEURONTIN ORAL) 06-15 10:11: 52 Yes Take by mouth 2 (two) times daily. [facility] SERTraline (ZOLOFT) 100 mg tablet 06-15 10:10: 46 Yes 100mg Take 100 mg by mouth daily. [facility] QUEtiapine (SEROQUEL) 25 mg tablet 06-15 10:10: 46 Yes 25mg Take 25 mg by mouth daily. [facility] ARIPiprazol e (ABILIFY) 5 mg tablet 06-15 10:10: 46 Yes 5mg Take 5 mg by mouth daily. [facility] Vital Signs Vital Name Observation Time Observation Value Comments S reji Systolic blood pressure 2021-05-31 18:16:00 126 mm[Hg] [facility] Diastolic blood pressure 2021-05-31 18:16:00 76 mm[Hg] Berthold o [facility] Heart rate 2021-05-31 18:16:00 94 /min [facility] Body temperature 2021-05-31 18:16:00 36.94 Chloe [facility] Respiratory rate 2021-05-31 18:16:00 16 /min [facility] Body height 2021-05-31 18:16:00 160 cm [facility] Body weight 2021-05-31 18:16:00 58.968 kg [facility] BMI 2021-05-31 18:16:00 23.03 kg/m2 [facility] Oxygen saturation in Arterial blood by Pulse oximetry 2021-05-31 18:16:00 98 /min Berthold o [facility] Procedures Procedure Date / Time Performed Performing Clinicia n Source NOTICE OF PRIVACY PRACTICES 2021-05-31 18:05:44 Doctor Unassigned, [place] [facility] CONSENT/REFUSAL FOR DIAGNOSIS AND TREATMENT 2021-05-31 18:05:27 Doctor Unassigned, [place] [facility] Encounters Start Date/Time End Date/Time Encounter Type Admission Type Attending Clinicians Care Facility Care Department Encounter ID Source 2021-03-17 15:17:46 Outpatient PATRICIA GIBSON [facility] [id number] [facility] 2023-02-23 00:00:00 2023-02-23 00:00:00 Outpatient TXO_A_Physi karely [facility] [id number] [facility] 2023-02-22 00:00:00 2023-02-22 00:00:00 Outpatient TXO_A_Physi karely AOSM AOSM [id number] [facility] 2021-05-31 13:17:00 2021-05-31 15:49:00 Emergency X Jimmie GUPTA [facility] ERT [id number] [facility] 2021-05-31 13:17:00 2021-05-31 15:49:00 Emergency Jimmie Gupta [facility] [id number] [facility]
--- NOTE | 2023-02-27 10:13 | EDPHYS ---
Physician Documentation [facility] Name: Nayeli Decker Age: 32 yrs Sex: Female : 1990 Arrival Date: 02/27/2023 Time: 09:56 Bed 11 Private MD: ED Physician Rufino Perez HPI: 02/27 10:14 This 32 yrs old Female presents to ER via Ambulatory with complaints of Post Surgical ms3 Pain. 10:14 32-year-old female with past medical history of anxiety, bipolar, osteoarthritis, PTSD ms3 presents to the emergency department for right foot pain. Patient states she had an I\T\D performed on her right foot in [place] 1 week prior to arrival. Patient states the pain is increased in her foot. Patient has not changed her dressing since her surgery.. Historical: - Allergies: 10:05 No Known Allergies; iw - PMHx: 10:05 Anxiety; Bipolar disorder; osteoarthritis; osteoathritis in knees; PTSD; iw - PSHx: 10:05 Operative procedure on knee; iw ROS: 10:14 Constitutional: Negative for fever, and chills. Neck: Negative for injury, pain, and ms3 swelling, Cardiovascular: Negative for chest pain, and palpitations. Respiratory: Negative for shortness of breath, cough, wheezing, and pleuritic chest pain, Abdomen/GI: Negative for abdominal pain, nausea, vomiting, diarrhea, and constipation, 10:14 Skin: Positive for Incisions on plantar surface and dorsal surface of right foot, 10:14 All other systems are negative, Exam: 10:14 Constitutional: This is a well developed, well nourished patient who is awake, alert, ms3 and in no acute distress. Head/Face: Normocephalic, atraumatic. Chest/axilla: Normal chest wall appearance and motion. Nontender with no deformity. Cardiovascular: Regular rate and rhythm with a normal S1 and S2. No gallops, murmurs, or rubs. Normal PMI, no JVD. No pulse deficits. Respiratory: Lungs have equal breath sounds bilaterally, clear to auscultation and percussion. No rales, rhonchi or wheezes noted. No increased work of breathing, no retractions or nasal flaring. 10:14 Skin: Plantar surface right foot with black suture in place without erythema or drainage. Sutures on dorsum left foot without erythema or drainage. Vital Signs: 10:05 BP 119 / 79; Pulse 99; Resp 16; Temp 98; Pulse Ox 100% on R/A; iw MDM: 10:12 Patient medically screened. ms3 10:14 Data reviewed: vital signs, nurses notes, and as a result, I will discharge patient. ms3 Care significantly affected by the following Social Determinants of Health: Poor access to healthcare and/or lack of insurance. Counseling: I had a detailed discussion with the patient and/or guardian regarding the historical points, exam findings, and any diagnostic results supporting the discharge/admit diagnosis, the need for outpatient follow up, to return to the emergency department if symptoms worsen or persist or if there are any questions or concerns that arise at home. ED course: Discussed physical exam findings with patient. Patient to follow-up with Dr. Magdaleno in 1 to 2 days. Patient understands agrees with plan. All questions were answered. Return precautions discussed include worsening symptoms, fever, drainage, foot erythema. Administered Medications: No medications were administered Disposition Summary: 02/27/23 10:13 Discharge Ordered Notes: Location: Home ms3 Condition: Stable ms3 Diagnosis - post op pain ms3 Followup: ms3 - With: Zacarias Magdaleno MD - When: 1 - 2 days - Reason: Recheck today's complaints Discharge Instructions: - Discharge Summary Sheet ms3 - Wound Care, Adult ms3 Forms: - Medication Reconciliation Form ms3 - Thank You Letter ms3 - Antibiotic Education ms3 - Prescription Opioid Use ms3 - Patient Portal Instructions ms3 - Leadership Thank You Letter ms3 Signatures: Jaymie Blanchard, RN RN uRfino Toussaint DO DO ms3
--- NOTE | 2023-02-27 10:13 | ER ---
Nurse's Notes [facility] Name: Nayeli Decker Age: 32 yrs Sex: Female : 1990 Arrival Date: 02/27/2023 Time: 09:56 Bed 11 Private MD: Diagnosis: post op pain Presentation: 02/27 10:04 Chief complaint: Patient states: had an abscess on her right foot that was drained last iw week in [place] , it's still bothering me. Coronavirus screen: At this time, the client does not indicate any symptoms associated with coronavirus-19. 10:04 Method Of Arrival: Ambulatory iw 10:04 Acuity: TANGELA 3 iw 10:05 Ebola Screen: Patient negative for fever greater than or equal to 101.5 degrees iw Fahrenheit, and additional compatible Ebola Virus Disease symptoms Patient denies exposure to infectious person. Patient denies travel to an Ebola-affected area in the 21 days before illness onset. No symptoms or risks identified at this time. 10:43 Risk Assessment: Do you want to hurt yourself or someone else? Patient reports no iw desire to harm self or others. Onset of symptoms was February 27, 2023. Triage Assessment: 10:30 General: Appears in no apparent distress. Behavior is calm, cooperative. iw Historical: - Allergies: 10:05 No Known Allergies; iw - PMHx: 10:05 Anxiety; Bipolar disorder; osteoarthritis; osteoathritis in knees; PTSD; iw - PSHx: 10:05 Operative procedure on knee; iw Screenin:40 [facility] ED Fall Risk Assessment (Adult) Score/Fall Risk Level 0 - 2 = Low Risk. Abuse iw screen: Denies threats or abuse. Denies injuries from another. Nutritional screening: No deficits noted. Tuberculosis screening: No symptoms or risk factors identified. Assessment: 10:30 General: Appears in no apparent distress. Behavior is calm, cooperative. Pain: iw Complains of pain in right foot. Neuro: Level of Consciousness is awake, alert, obeys commands, Oriented to person, place, time, situation. Cardiovascular: Patient's skin is warm and dry. Respiratory: Respiratory effort is even, unlabored, Respiratory pattern is regular. Vital Signs: 10:05 BP 119 / 79; Pulse 99; Resp 16; Temp 98; Pulse Ox 100% on R/A; iw ED Course: 09:59 Patient arrived in ED. mr 10:01 Rufino Perez DO is Attending Physician. ms3 10:04 Triage completed. iw 10:12 Zacarias Magdaleno MD is Referral Physician. ms3 10:17 Jaymie Blanchard, RN is Primary Nurse. iw 10:43 No provider procedures requiring assistance completed. Patient did not have IV access iw during this emergency room visit. Administered Medications: No medications were administered Outcome: 10:13 Discharge ordered by MD. ms3 10:44 Discharged to home ambulatory, iw 10:44 Condition: good 10:44 Discharge instructions given to patient, Instructed on discharge instructions, follow up and referral plans. Demonstrated understanding of instructions, follow-up care, 10:45 Patient left the ED. iw Signatures: Yanet Lema, Reg Reg mr Jaymie Blanchard, RN RN iw Rufino Perez DO DO ms3 Corrections: (The following items were deleted from the chart) 10:05 10:04 Chief complaint: Patient states: had an abscess on her foot that was drained last iw week in [place] , it's still bothering me iw
[2023-02-27 10:49] VITALS: BP 119/79; TEMP 98; O2SAT 100
== END ==
LOC: ER 09:56
DX: G89.18 Other acute postprocedural pain (principal)
CPT/HCPCS: 99282